=== PATIENT | male | born 1980 | race Caucasian/White ===

== ENCOUNTER 2019-09-17 13:31 | Emergency (ER) | payer OTHER, SELFPAY ==
[~2019-09-17] VITALS: Ht 180.3 cm; Wt 162.4 kg
[2019-09-17 13:31] VITALS: Ht 180.3 cm; Wt 162.4 kg
[2019-09-17 15:05] VITALS: BP 121/72
== END 2019-09-17 15:05 | disposition home or self-care (01) ==
LOC: ED 13:31
DX: R50.9 Fever, unspecified (principal); R61 Generalized hyperhidrosis; R06.02 Shortness of breath; R05 Cough; Z20.828 Contact with and (suspected) exposure to other viral communicable diseases; Z88.0 Allergy status to penicillin
CPT/HCPCS: U0003-CS